=== PATIENT | female | born 1945 | race Caucasian/White ===

== ENCOUNTER 2019-07-31 07:35 | Emergency (ER) | payer OTHER, MEDICARE ==
--- NOTE | 2019-07-31 07:51 | PDOC ---
History of Present Illness - General Chief Complaint: Injury Stated Complaint: LEFT RIBCARE PAIN S/P FALL Time Seen by Provider: 07/31/19 07:51 - History of Present Illness Initial Comments: 07/31/19 08:11 Pt presents to the ED complaining of L sided rib pain since mechanical slip and fall three days ago. Pain is sharp, pleuritic, focused on a point under her left breast. Denies shortness of breath. Has taken asprin at home for the pain without relief. Also has mild, non productive cough. Past History - Past Medical History Allergies/Adverse Reactions: Allergies Allergy/AdvReac Type Severity Reaction Status Date / Time No Known Allergies Allergy Verified 07/31/19 07:47 Home Medications: Ambulatory Orders Atorvastatin Ca [Lipitor] 20 mg PO HS 07/31/19 Oxycodone HCl/Acetaminophen [Percocet 5-325 mg Tablet] 1 tab PO Q4H PRN #6 tablet MDD 3 07/31/19 COPD: No Hypercholesterolemia: Yes Review of Systems - Review of Systems Able to Perform ROS?: Yes Is the patient limited [place] proficient: No Constitutional: No: Symptoms Reported, See HPI, Chills, Diaphoresis, Fever, Loss of Appetite, Malaise, Night Sweats, Weakness, Weight Stable, Unintentional Wgt. Loss, Unexplained wgt Loss, Other HEENTM: No: Symptoms Reported, See HPI, Eye Pain, Blurred Vision, Tearing, Recent change in vision, Double Vision, Cataracts, Ear Pain, Ocular Prothesis, Ear Discharge, Nose Pain, Nose Congestion, Tinnitus, Nose Bleeding, Hearing Loss , Throat Pain, Throat Swelling, Mouth Pain, Dental Problems, Difficulty Swallowing, Mouth Swelling, Other Respiratory: Yes: Cough Cardiac (ROS): Yes: Chest Pain. No: Edema, Irregular Heart Rate, Lightheadedness, Palpitations, Syncope, Chest Tightness, Other ABD/GI: No: Symptoms Reported, See HPI, Abdominal Distended, Abd. Pain w/ defecation, Blood Streaked Bowels, Constipated, Diarrhea, Difficulty Swallowing , Nausea, Poor Appetite, Poor Fluid Intake, Rectal Bleeding, Vomiting, Indigestion, Abdominal cramping, Tarry Stools, Other : No: Symptoms Reported, See HPI, Burning, Dysuria, Discharge, Frequency, Flank Pain, Hematuria, Incontinence, Pain, Urgency, Testicular Mass, Testicular Swelling, Lesions, Testicular Pain, Other Musculoskeletal: No: Symptoms Reported, See HPI, Back Pain, Gout, Joint Pain, Joint Swelling, Muscle Pain, Muscle Weakness, Neck Pain, Joint Stiffness, Other Integumentary: No: Symptoms Reported, See HPI, Bruising, Change in Color, Change in Hair/Nails, Dryness, Erythema, Flushing, Lesions, Lumps, Pallor, Pruritus, Rash, Sweating, Other Neurological: No: Symptoms reported, See HPI, Headache, Numbness, Paresthesia, Pre-Existing Deficit, Seizure, Tingling, Tremors, Weakness, Unsteady Gait, Ataxia, Dizziness, Other Psychiatric: No: Anxiety, Depression, Frequent Crying, Stressors, Sleep Pattern Change, Emotional Problems, Mood Swings, Change in Appetite, Other *Physical Exam - Physical Exam Comments: 07/31/19 08:14 gen: alert, NAD HEENT: normocephalic, atraumatic CV: rrr no m/r/g pulm: CTA b/l + point tenderness under L breast Abdomen: soft, non tender, non distended Medical Decision Making - Medical Decision Making 07/31/19 08:16 Pt presents to the ED complaining of L sided rib pain. CXR negative for rib fx or PTX. pain most likely due to contusion. Will give pain control and discharge home with instructions to return to the ED for worsening symptoms. 07/31/19 08:34 Discharge - Discharge Information Problems reviewed: Yes Clinical Impression/Diagnosis: Contusion, chest wall Qualifiers: Encounter type: initial encounter Laterality: left Qualified Code(s): S20.212A - Contusion of left front wall of thorax, initial encounter Condition: Good Disposition: HOME - Admission No - Additional Discharge Information Prescriptions: Oxycodone HCl/Acetaminophen [Percocet 5-325 mg Tablet] 1 tab PO Q4H PRN #6 tablet MDD 3 PRN Reason: Severe Pain Prescription Drug Monitoring Program (I-STOP) results: I-STOP not reviewed - Follow up/Referral - Patient Discharge Instructions Patient Printed Discharge Instructions: Smoking Cessation, DI for Contusion Additional Instructions: you came to the ED because you had pain in the left chest after falling. We did xrays in the ED which did not show a fracture--the pain is most likely caused by a bruised chest wall. You should return to the ED for severe pain or shortness of breath, fever, other new or worsening symptoms. I prescribed you a small amount of percoset for the pain. This medicine will make you drowsy and prone to falls. You should never take it with tylenol. - Post Discharge Activity
[2019-07-31 07:55] VITALS: BP 159/94; PULSE 83; TEMP 97.6; BMI 29.5
[2019-07-31] MEDS ORDERED: ACETAMINOPHEN 325 MG TABLET (FP) PO ONE (08:13)
[2019-07-31] MEDS ORDERED: ACETAMINOPHEN 325 MG TABLET (FP) ONE (08:24)
== END 2019-07-31 08:47 | disposition home or self-care (01) ==
LOC: FER 07:35
DX: S20.212A Contusion of left front wall of thorax, initial encounter (principal); W18.39XA Other fall on same level, initial encounter; Y93.89 Activity, other specified; Y92.89 Other specified places as the place of occurrence of the external cause
CPT/HCPCS: 71046-TC-FY; 99282-25

== ENCOUNTER 2023-08-29 10:37 | Emergency (ER) | payer OTHER, MEDICARE ==
[2023-08-29 10:53] VITALS: BP 163/85; PULSE 122; RESP 16; TEMP 97.7; BMI 29.9
[2023-08-29 12:47] LABS: EPITHELIAL CELLS 0-5 /hpf
== END 2023-08-29 13:04 | disposition home or self-care (01) ==
LOC: FER 10:37
DX: R10.9 Unspecified abdominal pain (principal); M54.40 Lumbago with sciatica, unspecified side; M46.90 Unspecified inflammatory spondylopathy, site unspecified; N13.2 Hydronephrosis with renal and ureteral calculous obstruction; N30.01 Acute cystitis with hematuria
CPT/HCPCS: 74176-TC; 81003; 81015; 99284-25

== ENCOUNTER 2023-09-25 10:55 | Inpatient (IN) | payer OTHER, MEDICARE ==
[2023-09-25] MEDS ORDERED: ACETAMINOPHEN 500 MG TABLET (FP) PO ONE (11:30)
[2023-09-25] MEDS ORDERED: ACETAMINOPHEN 500 MG TABLET (FP) ONE (11:32)
[2023-09-25 12:51] LABS: HEMOGLOBIN 13.9 G/dL (10.7-15.3); MCHC 33.9 g/dl (32.0-36.0); MEAN CELL VOLUME 97.3 fl (80-96); MEAN PLT VOLUME 9.3 fl (7.5-11.1); PLATELET COUNT 378.9 10^3/uL (134-434); RBC 4.21 10^6/uL (3.60-5.2); WHITE BLOOD COUNT 18.9 10^3/uL (4.0-10.8)
[2023-09-25 13:03] LABS: EPITHELIAL CELLS 0-5 /hpf
[2023-09-25 13:06] LABS: ALBUMIN 4.6 g/dl (3.4-5.0); BILIRUBIN,TOTAL 0.5 mg/dl (0.2-1); CALCIUM 9.9 mg/dl (8.5-10.1); CREATININE 0.8 mg/dl (0.6-1.3); POTASSIUM 4.3 mmol/L (3.5-5.1); TOT PROT 7.1 g/dl (6.4-8.2)
[2023-09-25] MEDS ORDERED: SODIUM CHLORIDE 0.9% 500 ML INFUS.BAG IV ONE ×2 (13:20→14:25)
[2023-09-25 13:47] LABS: PLATELET ESTIMATE SLT INCREASE
[2023-09-25] MEDS ORDERED: CEFTRIAXONE 1,000 MG in DEXTROSE 5%-WATER - 50 ML IVPB ONE (15:45)
[2023-09-25] MEDS ORDERED: cefTRIAXone SODIUM 1 GM VIAL ONE (16:11)
[2023-09-25] MEDS ORDERED: ACETAMINOPHEN 1000 MG/100 ML BAG IVPB PRN (21:44)
[2023-09-26 01:47] VITALS: BMI 29.7
[2023-09-26 08:02] LABS: BASO % 0.6 % (0-2.0); EOS % 1.2 % (0-4.5); LYMPH % 16.5 % (8-40); MONO % 5.9 % (3.8-10.2); NEUT % 75.8 % (42.8-82.8)
[2023-09-26 08:07] LABS: POTASSIUM 3.7 mmol/L (3.5-5.1)
[2023-09-26 08:08] LABS: BLOOD UREA NITROGEN 12.7 mg/dL (7-18); CALCIUM 8.5 mg/dL (8.5-10.1)
[2023-09-26 08:12] LABS: CREATININE 0.5 mg/dL (0.55-1.3)
[2023-09-26 08:26] LABS: HEMATOCRIT 36.7 % (32.4-45.2); MCH 31.1 pg (25.7-33.7); MCHC 32.8 g/dl (32.0-36.0); MEAN CELL VOLUME 94.9 fl (80-96); MEAN PLT VOLUME 9.4 fl (7.5-11.1); PLATELET COUNT 316 10^3/uL (134-434); RBC 3.87 M/mm3 (3.60-5.2); RDW 14.3 % (11.6-15.6); WHITE BLOOD COUNT 8.1 K/mm3 (4.0-10.0)
[2023-09-26] MEDS ORDERED: ONDANSETRON 4 MG/2 ML VIAL ONE ×2 (08:53→09:04)
[2023-09-26] MEDS ORDERED: MIDAZOLAM HCL 2 MG/2 ML SINGLE DOSE VIAL ONE (08:53)
[2023-09-26] MEDS ORDERED: LIDOCAINE HCL/PF 2% SDV 5ML VIAL ONE (08:53)
[2023-09-26] MEDS ORDERED: PROPOFOL 20 ML ONE ×2 (08:53→09:01)
[2023-09-26] MEDS ORDERED: KETOROLAC TROMETHAMINE 30 MG/1 ML VIAL ONE (08:53)
[2023-09-26] MEDS ORDERED: SODIUM CHLORIDE 0.9% P/F 10 ML VIAL IJ ONE (09:04)
[2023-09-26] MEDS ORDERED: ONDANSETRON 4 MG/2 ML VIAL IVPUSH PRN ×2 (09:24→10:22)
[2023-09-26] MEDS ORDERED: LACTATED RINGERS SOLUTION 1,000 ML IV SCH (09:30)
[2023-09-26] MEDS ORDERED: cefTRIAXone SODIUM 1 GM VIAL IVPB ONE (09:50)
[2023-09-26] MEDS ORDERED: CEFTRIAXONE 1 GM in DEXTROSE 5%-WATER - 50 ML IVPB SCH (10:00)
[2023-09-26] MEDS ORDERED: NICOTINE 7 MG/24 HOURS TOPICAL PATCH TD SCH (10:00)
[2023-09-26] MEDS ORDERED: ACETAMINOPHEN 1000 MG/100 ML BAG IVPB ONE (10:22)
[2023-09-26] MEDS: ACETAMINOPHEN 1000 MG/100 ML BAG IVPB PRN ×2 (10:31→10:39)
[2023-09-26] MEDS: LACTATED RINGERS SOLUTION 1,000 ML IV SCH ×2 (11:45→18:28)
[2023-09-26] MEDS ORDERED: PNEUMOC 20-VAL CONJ-DIP CRM/PF 0.5 ML SYRINGE IM ONE (22:00)
[2023-09-27] MEDS ORDERED: CEFTRIAXONE 1 GM in DEXTROSE 5%-WATER - 50 ML IVPB SCH (10:00)
[2023-09-27] MEDS ORDERED: NICOTINE 7 MG/24 HOURS TOPICAL PATCH TD SCH (10:00)
[2023-09-27] MEDS: LACTATED RINGERS SOLUTION 1,000 ML IV SCH (12:28)
[2023-09-28 05:46] VITALS: BP 152/77; PULSE 76; RESP 18; TEMP 97.6
== END 2023-09-28 09:17 | disposition home or self-care (01) | DRG 661 ==
LOC: FER 10:55 → J7W 23:43
PROVIDERS: ADMIT Internal Medicine; ATTEND Family Medicine
PROC: BT1DZZZ Fluoroscopy of Right Kidney, Ureter and Bladder (ICD-10-PCS; 2023-09-26)
PROC: 0T768DZ Dilation of Right Ureter with Intraluminal Device, Via Natural or Artificial Opening Endoscopic (ICD-10-PCS; principal; 2023-09-26 08:10)
DX: N13.6 Pyonephrosis (principal); E78.5 Hyperlipidemia, unspecified; M41.9 Scoliosis, unspecified; N13.0 Hydronephrosis with ureteropelvic junction obstruction; F17.210 Nicotine dependence, cigarettes, uncomplicated; R31.29 Other microscopic hematuria
CPT/HCPCS: 36415; 74176-TC; 74177-TC; 76000-TC-FY; 80048; 80053; 81003; 81015; 85025; 87086; 93005; 94760; 99285-25; C1758; C2617; Q9967

== ENCOUNTER 2023-10-21 04:11 | Day surgery (SDC) | payer OTHER, MEDICARE ==
[2023-10-18 10:22] VITALS: BMI 29.5
[2023-10-21] MEDS ORDERED: PROPOFOL 20 ML ONE ×2 (13:30→13:35)
[2023-10-21] MEDS: ceFAZolin SODIUM 1 GM VIAL IVPB ONE (13:32)
[2023-10-21] MEDS ORDERED: ePHEDrine SULFATE 50 MG/1 ML AMPULE ONE (13:46)
[2023-10-21] MEDS ORDERED: oxyCODONE HCL 5 MG TABLET PO PRN (14:04)
[2023-10-21] MEDS ORDERED: LACTATED RINGERS SOLUTION 1,000 ML IV SCH (14:15)
[2023-10-21] MEDS ORDERED: DEXTROSE 5%-0.45% SALINE 1,000 ML IV SCH (14:15)
[2023-10-21] MEDS ORDERED: ALBUTEROL SO4 0.083% IH SOL 2.5 MG/3 ML VIAL.NEB. NEB ONE (15:21)
[2023-10-21] MEDS: ALBUTEROL SO4 0.083% IH SOL 2.5 MG/3 ML VIAL.NEB. NEB ONE ×2 (15:23→16:11)
[2023-10-21] MEDS ORDERED: ALBUTEROL SO4 0.083% IH SOL 2.5 MG/3 ML VIAL.NEB. NEB PRN (16:10)
[2023-10-21 16:42] VITALS: RESP 22; TEMP 97.9
[2023-10-21 17:20] VITALS: BP 125/66; PULSE 103
== END 2023-10-21 17:17 | disposition home or self-care (01) ==
LOC: JASU-SURG 04:11
PROVIDERS: ATTEND Urology
PROC: 0T768DZ Dilation of Right Ureter with Intraluminal Device, Via Natural or Artificial Opening Endoscopic (ICD-10-PCS; principal; 2023-10-21 14:00)
DX: N20.1 Calculus of ureter (principal)
CPT/HCPCS: 76000-TC-FY; 94760; C1758; C2617